=== PATIENT | male | born 1980 | race African-American/Black ===

== ENCOUNTER 2016-09-11 03:32 | Emergency (ER) | payer MEDICAID ==
[2016-09-11 03:47] VITALS: BMI 43.4
[2016-09-11] MEDS ORDERED: PREDNISONE 20 MG TAB PO ONE (03:47)
--- NOTE | 2016-09-11 03:52 | EDPRACDOC ---
- General Information Chief Complaint: Wrist Pain Stated Complaint: RT WRIST PAIN Time Seen by Provider: 09/11/16 03:47 Information Source: Patient Mode of Arrival: Car Home Medications: Home Medications Levothyroxine [Synthroid, Levoxyl] 75 mcg PO DAILY 12/09/12 Lisinopril 10 mg PO DAILY 12/09/12 Aspirin (Enteric Coated) [Halfprin] 81 mg PO DAILY 08/15/13 Hydrochlorothiazide 25 mg PO DAILY #30 tablet 08/15/13 Hydrocodone Bit/Acetaminophen [[place] 7.5-325 Tablet] 1 each PO TID 12/23/14 Morphine Sulfate [Morphine Sulfate ER] 15 mg PO BID 11/13/15 Ketorolac Tromethamine [Toradol] 10 mg PO Q6H PRN #20 tab 09/11/16 Prednisone [Sterapred 10 mg/6 day pack] 21 tab PO DIR #1 pack 09/11/16 Allergies/Adverse Reactions: Allergies Allergy/AdvReac Type Severity Reaction Status Date / Time No Known Allergies Allergy Verified 02/09/16 05:25 - History of Present Illness Onset: since Thursday HPI: PATIENT HAS A HX OF GOUT. NOTES SWELLING AND PAIN IN RIGHT WRIST FOR DAYS. CHRONIC PROBLEM. ALREADY IN WRIST SPLINT. CURRENTLY TAKING LARGE DOSES OF NARCOTICS. PAIN WORSE WITH MOVEMENT OR PALPATION. DENIES TRAUMA Location: Reports: Dorsal Dominant Side: Reports: Right Mechanism: Reports: No Injury/Trauma Tetanus Up To Date?: Yes Pain Severity: Reports: Mild ED Past Medical History - History Reviewed Yes Nurses notes reviewed and agree except as marked Travel Outside of [place] in the Last 3 Months?: No - Patient Medical History Cardiac History: Reports: Hypertension, Hypercholesterolemia GI/ History: Reports: Gastroesophageal Reflux Psychological History: Denies: Depression Systemic History: Reports: Diabetes (IDDM). Denies: Cancer Additional Past Medical History: NECROTIZING FASCITIS OF CHEST WALL. Diabetic Neuropathy Surgical History: Reports: Tonsillectomy/Adnoidectomy - Social Medical History Smoking Status: Never smoker ETOH: None Substance Abuse: None Lives With: Family Lives In: Home EDM Review of Systems - Review of Systems ROS Negative Except as Marked: Yes All systems reviewed and were negative except as marked Constitutional: No Symptoms Reported. negative: Fever, Chills, Weakness, Fatigue, Loss of Appetite Eyes: No Symptoms Reported. negative: Redness, Blurred Vision, Double Vision, Discharge, Pain, Light Sensitive, Photophobia Ears: No Symptoms Reported. negative: Pain, Hearing Loss, Drainage, Ear Pulling Throat: No Symptoms Reported. negative: Pain, Swelling Nose: No Symptoms Reported. negative: Congestion, Bleeding, Discharge, Injection, Swelling, Deformity, Ecchymosis, Tender, Abrasion, Laceration Mouth: No Symptoms Reported. negative: Pain, Drooling Respiratory: No Symptoms Reported. negative: Cough, Brassy Cough, Barky Cough, Shortness of Breath, Wheezing, Hemoptysis Cardiovascular: No Symptoms Reported. negative: Chest Pain, Palpitations, Syncope, Edema, Orthopnea, PND, Skin Mottling, Cyanosis Gastrointestinal: No Symptoms Reported. negative: Pain, Constipation, Nausea, Vomiting, Diarrhea, Melena, Formula Intolerance Genitourinary: No Symptoms Reported. negative: Dysuria, Hematuria, Frequency, Discharge, Bleeding, Testicular Pain, Neurological: No Symptoms Reported. negative: Headache, Dizziness, Seizure, Numbness, Weakness, Speech Difficulty, Gait Difficulty Musculoskeletal: Wrist. negative: Arm, Ankle, Back, Chestwall, Elbow, Forearm, Femur, Foot, Hand, Hip, Knee, Leg, Neck, Pelvis, Ribs, Shoulder Integumentary: No Symptoms Reported. negative: Itching, Rash, Bruising, Wound Allergic/Immunologic: No Symptoms Reported. negative: Hives, Itching Hematologic: No Symptoms Reported. negative: Lymphadenopathy, Easy Bruising, Easy Bleeding Endocrine: No Symptoms Reported. negative: Weight Gain, Weight Loss Psychiatric: No Symptoms Reported. negative: Anxiety, Depression, Hallucinations, Insomnia, Suicidal - Physical Exam Constitutional: Alert (Awake), Distress (MILD) Oriented to: Time, Person, Place Last recorded Vital Signs: Last Vital Signs Temp 97.5 F 09/11/16 03:43 Pulse 87 09/11/16 03:43 Resp 20 09/11/16 03:43 BP 138/83 09/11/16 03:43 Pulse Ox 93 09/11/16 03:43 Oxygen Pulse Oxygen Saturation 93 O2 Device Room Air Oxygen Flow Rate Fraction of Inspired Oxygen ( FIO2) - HEENT Head: Normal ( normocephalic) Eye Exam: Normal (PERRL, EOMI, Sclera white) Oropharynx: Normal (Pharynx:Moist without exudate,Gums-no swelling) Tympanic Membrane: Normal ENT EAC: Normal TMJ: Normal Nose: No Symptoms Reported (septum midline) Neck: Normal (FROM, trachea at midline) - Respiratory/Cardiovascular Respiratory: Normal - CTA (BBS clear to auscultation without adventitious sounds ) Cardiovascular: Normal (RRR without murmur, gallop or rub) - GI Auscultation: Normal (NABS) Palpation: Normal (Soft,No rebound or guarding, non distended) Tenderness: Non tender Bae's Sign: Negative - Musculoskeletal Back: Normal (Non-Tender) - Integumentary Skin: Normal, Warm, Dry Lymphatics: Normal (no adenopathy) - Neurologic Memory Impaired: Normal Motor Function: Normal (Normal tone, Pulses 2+ No cyanosis or edema, FROM) Cranial Nerve: Normal (CN II-X11 intact sensation, strength 5/5) Cerebellar: Normal Mood Description: Normal Perception: Normal ED Wrist Problem Exam Wrist Symptoms: Limited ROM, Mild Tenderness. negative: Swelling, Deformity Hand Symptoms: Normal Forearm Symptoms: Normal Distal Function/Circulation: Normal - Integumentary Skin: Normal Tendon %: None Identified Lymphatics: Normal Decision Time to Discharge: 04:42 - Departure Yes I personally saw and evaluated the patient. Disposition: Home Condition: Good Final Diagnosis: Right wrist pain, Gouty arthritis Instructions: Gout (ED) Education/Counseling Given To: Patient Education/Counseling Given Regarding: Diagnosis, Treatment, Prognosis, Follow Up Referrals: Azeem Jones MD [Primary Care Provider] - One Week Prescriptions: Ketorolac Tromethamine [Toradol] 10 mg PO Q6H PRN #20 tab PRN Reason: Pain Prednisone [Sterapred 10 mg/6 day pack] 21 tab PO DIR #1 pack
--- NOTE | 2016-09-11 04:41 | DIRPT ---
CLINICAL DATA: 36-year-old male with wrist pain EXAM: RIGHT WRIST - COMPLETE 3+ VIEW COMPARISON: None. FINDINGS: No acute fracture or dislocation. There is mild soft tissue swelling of the wrist. No radiopaque foreign object. IMPRESSION: No acute osseous pathology. Electronically Signed By: Scottie Graham M.D. On: 09/11/2016 04:38
[2016-09-11 05:20] VITALS: BP 128/79; PULSE 91; TEMP 98
== END 2016-09-11 05:00 | disposition home or self-care (01) ==
LOC: ED 03:32
DX: M25.531 Pain in right wrist (principal); M10.9 Gout, unspecified
CPT/HCPCS: 36415; 73110; 84550; 99283; J3490